=== PATIENT | female | born 1990 | race African-American/Black ===

== ENCOUNTER 2017-07-04 11:19 | Emergency (ER) | payer MEDICAID ==
[~2017-07-04] VITALS: Ht 165.1 cm; Wt 81.6 kg
[2017-07-04 11:25] VITALS: BP 112/76
== END 2017-07-04 13:02 | disposition home or self-care (01) ==
LOC: ER 11:19
DX: S16.1XXA Strain of muscle, fascia and tendon at neck level, initial encounter (principal); J32.0 Chronic maxillary sinusitis; X58.XXXA Exposure to other specified factors, initial encounter; Y93.89 Activity, other specified; Y99.8 Other external cause status; Y92.89 Other specified places as the place of occurrence of the external cause

== ENCOUNTER 2024-04-07 14:51 | Emergency (ER) | payer MEDICAID ==
[~2024-04-07] VITALS: Ht 165.1 cm; Wt 86.3 kg
[2024-04-07] MEDS ORDERED: CYCL-837 PO (16:57)
[2024-04-07 17:43] VITALS: BP 128/79; PULSE 78; RESP 17; TEMP 98.7; O2SAT 97
== END 2024-04-07 17:44 | disposition home or self-care (01) ==
LOC: ER 14:51
DX: S80.02XA Contusion of left knee, initial encounter (principal); S80.01XA Contusion of right knee, initial encounter; S00.83XA Contusion of other part of head, initial encounter; W10.8XXA Fall (on) (from) other stairs and steps, initial encounter; Y93.89 Activity, other specified; Y92.89 Other specified places as the place of occurrence of the external cause; Y99.8 Other external cause status
CPT/HCPCS: 73562